=== PATIENT | male | born 1960 | race Caucasian/White ===

== ENCOUNTER → 2017-01-24 | Outpatient (CLI) | payer MEDICARE, OTHER ==
[2017-01-24 12:34] LABS: CHCM 34.9; HCT 46.8 % (39.0-53.0); HDW 2.75; HGB 16.6 gm/dL (13.0-17.5); MCH 32.6 pg (25.0-35.0); MCHC 35.4 g/dL (31.0-37.0); Mean Platelet Volume 7.2; RBC 5.09 m/uL (4.30-5.90); RDW 12.8 % (11.5-15.5); WBC 8.7 k/uL (3.8-10.6)
[2017-01-24 12:48] LABS: ALT 42 U/L (21-72); AST 30 U/L (17-59); Alkaline Phosphatase 81 U/L (38-126); Anion Gap 11 mmol/L; Blood Urea Nitrogen 14 mg/dL (9-20); Calcium 9.8 mg/dL (8.4-10.2); Carbon Dioxide 25 mmol/L (22-30); Chloride 104 mmol/L (98-107); Cholesterol 205 mg/dL (<200); Glucose 103 mg/dL (74-99); HDL Cholesterol 50 mg/dL (40-60); Non-African American GFR(MDRD) >60 (>60 ml/min/1.73 sqM); Potassium 4.3 mmol/L (3.5-5.1); Sodium 140 mmol/L (137-145); Total Protein 7.5 g/dL (6.3-8.2); Triglycerides 136 mg/dL (<150)
[2017-01-24 13:19] LABS: Hepatitis B Surface Ag Index 0.07
[2017-01-24 13:24] LABS: Hepatitis B Core IgM Index 0.04
[2017-01-24 13:36] LABS: Hepatitis C Virus IgG Index 0.01
[2017-01-24 13:40] LABS: Hepatitis C Virus IgG Ab Negative (Negative)
== END ==
LOC: LABWHC1 12:04
PROVIDERS: ATTEND Internal Medicine
DX: Z00.01 Encounter for general adult medical examination with abnormal findings (principal); I11.9 Hypertensive heart disease without heart failure; E78.2 Mixed hyperlipidemia; M54.5 Low back pain; J44.9 Chronic obstructive pulmonary disease, unspecified; Z11.59 Encounter for screening for other viral diseases
CPT/HCPCS: 36415; 80053; 80061; 80074; 85027

== ENCOUNTER → 2018-01-11 | Outpatient (CLI) | payer MEDICARE, OTHER ==
--- NOTE | 2018-01-11 09:44 | XR ---
EXAMINATION TYPE: XR chest 2V DATE OF EXAM: 01/11/2018 COMPARISON: 03/11/2016 INDICATION: Wellness check, asthma history TECHNIQUE: Frontal and lateral views of the chest are obtained. FINDINGS: The heart size is normal. The pulmonary vasculature is normal. The lungs are clear. IMPRESSION: 1. No acute pulmonary process.
[2018-01-11 09:49] LABS: HCT 44.3 % (39.0-53.0); HGB 14.6 gm/dL (13.0-17.5); MCH 30.2 pg (25.0-35.0); MCHC 32.9 g/dL (31.0-37.0); MCV 91.7 fL (80.0-100.0); Mean Platelet Volume 6.5; Platelet Count 365 k/uL (150-450); RBC 4.83 m/uL (4.30-5.90); RDW 12.3 % (11.5-15.5); WBC 8.2 k/uL (3.8-10.6)
[2018-01-11 09:56] LABS: ALT 47 U/L (21-72); AST 27 U/L (17-59); Albumin 4.2 g/dL (3.5-5.0); Alkaline Phosphatase 72 U/L (38-126); Anion Gap 10 mmol/L; Blood Urea Nitrogen 15 mg/dL (9-20); Calcium 10.1 mg/dL (8.4-10.2); Carbon Dioxide 31 mmol/L (22-30); Chloride 103 mmol/L (98-107); Cholesterol 167 mg/dL (<200); Glucose 108 mg/dL (74-99); HDL Cholesterol 54 mg/dL (40-60); LDL Cholesterol,Calculated 84 mg/dL (0-99); Potassium 4.7 mmol/L (3.5-5.1); Sodium 144 mmol/L (137-145); Total Bilirubin 0.5 mg/dL (0.2-1.3); Total Protein 6.6 g/dL (6.3-8.2); Triglycerides 144 mg/dL (<150)
[2018-01-11 10:12] LABS: T4, Free (Free Thyroxine) 1.06 ng/dL (0.78-2.19)
[2018-01-11 10:26] LABS: Prostate Specific Antigen 0.35 ng/mL (0.00-4.00)
== END | disposition home or self-care (01) ==
LOC: LABWHC1 09:06
PROVIDERS: ATTEND Internal Medicine
DX: Z00.00 Encounter for general adult medical examination without abnormal findings (principal); J44.9 Chronic obstructive pulmonary disease, unspecified; K21.0 Gastro-esophageal reflux disease with esophagitis; N40.0 Benign prostatic hyperplasia without lower urinary tract symptoms; E78.2 Mixed hyperlipidemia; I11.9 Hypertensive heart disease without heart failure
CPT/HCPCS: 36415; 71046; 80053; 80061; 82272; 84153; 84439; 84443; 85027

== ENCOUNTER 2018-02-18 11:40 | Day surgery (SDC) | payer MEDICARE, OTHER ==
[2018-02-15 13:09] VITALS: BMI 28.0
[~2018-02-18 11:40] MED LIST: LACTATED RINGERS 1,000 ML IV SCH
[2018-02-18 12:08] VITALS: RESP 18; TEMP 98.1
[2018-02-18] MEDS ORDERED: LACTATED RINGERS 1,000 ML IV ONE (12:14)
[2018-02-18] MEDS ORDERED: PROPOFOL 10 MG/ML 20 ML VIAL IV ONE (12:31)
--- NOTE | 2018-02-18 13:02 | P.PCN ---
Date of Procedure: 02/18/18 Procedure(s) Performed: Procedure: Total colonoscopy. Preoperative diagnosis: Screening for neoplasia, patient has history of polyps. Postoperative diagnosis: Sigmoid diverticulosis with no evidence of acute diverticulitis, strictures, polyps or cancer. Preparation: HalfLytely prep. Sedation: Was provided by anesthesia. Brief clinical history: The patient is a 57-year-old male who is scheduled for this evaluation for screening for neoplasia. He has history of polyps and his last colonoscopy was around 5 years ago. The patient has no abdominal complaints, bleeding or anemia. Procedure: With the patient on his left lateral decubitus position and after informed consent and adequate sedation, the perianal area was inspected and it did not show any fissures or fistulas. There were no masses felt on digital rectal examination. The Olympus CFQ 160L video colonoscope was then inserted in the rectum in the usual fashion and advanced to the cecum. There were few diverticular orifices seen scattered in the sigmoid but there was no evidence of acute diverticulitis or strictures. The mucosa appeared healthy. No polyps or tumors were seen. I retroflexed the endoscope in the rectum before the endoscope was withdrawn. The patient tolerated the procedure. Plan: The patient was reassured. Discussed dietary measures. He will follow up with you as planned and I recommended repeat exam in 5 years.
[2018-02-18 13:17] VITALS: BP 127/67; PULSE 59
== END 2018-02-18 13:48 | disposition home or self-care (01) ==
LOC: ORWHC2ENDO 11:40
DX: Z12.11 Encounter for screening for malignant neoplasm of colon (principal); K57.30 Diverticulosis of large intestine without perforation or abscess without bleeding; Z86.010 Personal history of colon polyps; I10 Essential (primary) hypertension; E78.5 Hyperlipidemia, unspecified; J45.909 Unspecified asthma, uncomplicated; M19.90 Unspecified osteoarthritis, unspecified site; G89.29 Other chronic pain; F17.210 Nicotine dependence, cigarettes, uncomplicated; Z79.891 Long term (current) use of opiate analgesic; Z79.899 Other long term (current) drug therapy; Z88.8 Allergy status to other drugs, medicaments and biological substances

== ENCOUNTER → 2019-03-15 | Outpatient (CLI) | payer MEDICARE, OTHER ==
[2019-03-15 11:18] LABS: HCT 44.1 % (39.0-53.0); HGB 15.1 gm/dL (13.0-17.5); MCH 31.3 pg (25.0-35.0); MCHC 34.2 g/dL (31.0-37.0); MCV 91.5 fL (80.0-100.0); Mean Platelet Volume 6.3; Platelet Count 349 k/uL (150-450); RBC 4.82 m/uL (4.30-5.90); RDW 12.7 % (11.5-15.5); WBC 7.1 k/uL (3.8-10.6)
[2019-03-15 16:19] LABS: Albumin 4.3 g/dL (3.80-4.90); Albumin/Globulin Ratio 2.69 (1.60-3.17); Anion Gap 6.8 mmol/L (4.00-12.00); Calcium 9.3 mg/dL (8.7-10.3); Carbon Dioxide 28.2 mmol/L (21.6-31.8); Globulin 1.6 g/dL (1.6-3.3); LDL Cholesterol,Calculated 139.4 mg/dL (0.0-131.0); Total Bilirubin 0.3 mg/dL (0.2-1.2); Total Protein 5.9 g/dL (6.2-8.2); VLDL Calculation 21.6 mg/dL (5.00-40.00)
--- NOTE | 2019-03-15 16:22 | XR ---
EXAMINATION TYPE: XR chest 2V DATE OF EXAM: 03/15/2019 COMPARISON: 01/11/2018 HISTORY: 58-year-old male COPD TECHNIQUE: Frontal and lateral views FINDINGS: Heart normal size. Aorta and pulmonary vasculature within normal limits. Hyperinflation with flatteni ng of hemidiaphragms. Right apical nodularity seems to have been present back in 2018. IMPRESSION: COPD. Right apical nodularity for which a contrast enhanced CT chest is recommended, especially, give n the patient's increased risk for development of lung cancer.
[2019-03-15 16:28] LABS: T4, Free (Free Thyroxine) 1.2 ng/dL (0.80-1.80)
== END | disposition home or self-care (01) ==
LOC: LABWHC1 10:43
PROVIDERS: ATTEND Internal Medicine
DX: J44.9 Chronic obstructive pulmonary disease, unspecified (principal); I11.9 Hypertensive heart disease without heart failure; E78.2 Mixed hyperlipidemia; N62 Hypertrophy of breast
CPT/HCPCS: 36415; 71046; 80053; 80061; 84146; 84403; 84439; 84443; 85027

== ENCOUNTER → 2019-03-21 | Outpatient (CLI) | payer MEDICARE, OTHER ==
--- NOTE | 2019-03-21 09:48 | CT ---
EXAMINATION TYPE: CT chest w con DATE OF EXAM: 03/21/2019 COMPARISON: Prior chest x-ray March 15, 2019 HISTORY: Chest mass, lump. Recent abnormal chest x-ray CT DLP: 543 mGycm. Automated Exposure Control for Dose Reduction was Utilized. TECHNIQUE: CT scan of the thorax is performed following with IV Contrast, patient injected with 100 ml mL of Isovue 300. FINDINGS: LUNGS: There is background moderate underlying emphysematous change identified most prominent in the lung apices. Corresponding to area of concern right lung apex there is osteophyte or bony projection inferior aspect of the right posterior second junction with right T2 transverse process. There is no suspicious intraparenchymal nodules or masses. No suspicious consolidation or infiltrate. No pleural effusion or pneumothorax. Tracheobronchial tree is patent. MEDIASTINUM: There are no greater than 1 cm hilar or mediastinal lymph nodes. No cardiomegaly or pe ricardial effusion is seen. OTHER: Right greater than left bilateral subareolar gynecomastia is appreciated. IMPRESSION: No suspicious nodules or adenopathy. Moderate emphysematous changes without acute pulmona ry process.
== END | disposition home or self-care (01) ==
LOC: RADCTMAIN 08:58
PROVIDERS: ATTEND Internal Medicine
DX: J43.9 Emphysema, unspecified (principal)
CPT/HCPCS: 71260; Q9967

== ENCOUNTER → 2023-06-12 | Outpatient (CLI) | payer MEDICARE, OTHER ==
--- NOTE | 2023-06-15 08:33 | PE ---
EXAMINATION TYPE: PET CT fusion skull to thigh DATE OF EXAM: 06/12/2023 COMPARISON: CT chest 03/21/2019 Prior PET/CT: None HISTORY: Solitary pulmonary nodule TECHNIQUE: Following the intravenous administration of 10 mCi of F-18 FDG, whole body images are per formed from the skull base to the midthigh. Images are reviewed on the computer in the coronal, axia l, and sagittal planes. Reconstructed rotating images are created on independent workstation and rev iewed on the computer. A localization and attenuation correction CT is performed in conjunction wit h the PET scan. DLP: 472.07 mGycm SCAN: Initial Blood glucose: 103 mg/dL Average Mediastinum SUV: 1.55 Average Liver SUV: 2.47 FINDINGS: NECK: Note is made of some intermediate signal within the space between the C6-C7 spinous process co uld be some mild injury or strain. This is an SUV value 1.82. Image 49. THORAX: There is some intermediate signal and area of slight increased density along the lateral left upper lung field, image 82. This has an SUV value 1.36 which is nonspecific. This may be small and h ypermetabolic neoplasm may be more difficult to exclude. Infectious etiologies are within the differe ntial. Monitoring was CT chest is recommended. ABDOMEN: No abnormal uptake PELVIS: No abnormal uptake OSSEOUS STRUCTURES: There is mild uptake at the anterior superior iliac spine on the right, which may be some strain. Sphenoid 2.47. LOCALIZATION CT: Noncontributory COMPARISON: The increased density in the lateral left apex is an interval finding from 03/21/2019 millicent rison IMPRESSION: 1. Intermediate signal within the small area of increased density lateral left apex. Finding is nonsp ecific. Infectious etiology and early neoplasm could be considered. Monitoring with follow-up chest C T with contrast in 3 months is recommended.
== END | disposition home or self-care (01) ==
LOC: RADPETMAIN 08:28
PROVIDERS: ATTEND Family Medicine
DX: R91.1 Solitary pulmonary nodule (principal); R91.8 Other nonspecific abnormal finding of lung field
CPT/HCPCS: 78815; A9552

== ENCOUNTER → 2023-09-24 | Outpatient (CLI) | payer MEDICARE ==
--- NOTE | 2023-09-25 08:08 | CT ---
EXAMINATION TYPE: CT chest w con DATE OF EXAM: 09/24/2023 COMPARISON: 03/21/2019 HISTORY: nodules, hx of COPD CT DLP: 546 mGycm, Automated exposure control for dose reduction was used. CONTRAST: Performed injected with 100 mL of Isovue 300. TECHNIQUE: Axial images were obtained at 5 mm thick sections. Reconstructed images are reviewed on [employer] computer in the coronal plane. FINDINGS: Portion of the thyroid visualized is normal. There is a 2 cm calcification in the posterior medial right apex as previously. Some thick linear density along the lateral left lung margin measuring 2.2 x 0.6 cm. Series 4 image 1 9. This is new from comparison of 03/21/2019. This area is slightly hyperintense on the PET/CT of 2022. No enlarged mediastinal or hilar adenopathy is evident. The ascending aorta diameter at the level o f the main pulmonary artery is 3.1 cm. The main pulmonary artery diameter at the bifurcation is 2.[address] sections are obtained through the upper abdomen. Abdomen is essentially unremarkable. IMPRESSION: 1. Increasing size density left apex. Repeat PET/CT recommended for suspected neoplasm.
== END | disposition home or self-care (01) ==
LOC: RADCTMAIN 16:32
PROVIDERS: ATTEND Family Medicine
DX: J43.9 Emphysema, unspecified (principal); J98.4 Other disorders of lung; R91.1 Solitary pulmonary nodule
CPT/HCPCS: 71260; Q9967

== ENCOUNTER → 2023-11-26 | Outpatient (CLI) | payer MEDICARE, OTHER ==
--- NOTE | 2023-11-28 11:51 | PE ---
EXAMINATION TYPE: PET CT fusion skull to thigh DATE OF EXAM: 11/26/2023 CLINICAL INDICATION:Male, 63 years old with history of R91.1 LUNG NODULE; TECHNIQUE: Following the intravenous administration of 12.57 mCi of F-18 FDG, whole body images are performed from the skull base to the midthigh. Images are reviewed on the computer in the coronal, axial, and sagittal planes. Reconstructed rotating images are created on independent workstation and reviewed on the computer. A non-contrast CT is performed in conjunction with the PET scan. Glucose level 90 mg/dL CT DLP: 365 mGycm, Automated exposure control for dose reduction was used. COMPARISON: CT 09/24/2023, PET/CT 06/04/2023, FINDINGS: Mediastinal SUV mean is 1.6. Hepatic parenchyma SUV mean is 2.4. SKULL BASE AND NECK: * No suspicious radiotracer activity. * Uptake in the supraspinous ligament and the low posterior neck suggestive of muscle strain. CHEST, MEDIASTINUM, AND HILAR REGION: * Increased density within the left upper lung lateral aspect is thought to represent atelectasis an d/or scarring. Morphology has significantly changed compared to 06/12/2023. Max SUV 1.5. Previously 1. 7. * No suspicious radiotracer activity. * Left upper thorax muscle strain involving multiple muscles in the low neck including the scalene m uscles and intercostal muscles. ABDOMEN AND PELVIS: No suspicious radiotracer activity. MUSCULOSKELETAL STRUCTURES: No suspicious radiotracer activity. OTHER CT: Atherosclerosis of the arterial vasculature including the carotid arteries. Mild bilateral gynecomastia changes. Small hiatal hernia. Small umbilical hernia. Scattered colonic diverticula. Pro statomegaly IMPRESSION: Finding the left upper lung lateral aspect has a streaky curvilinear morphology. Findings suggest ate lectasis and/or scarring. Surveillance with CT chest is recommended.
== END | disposition home or self-care (01) ==
LOC: RADPETMAIN 07:50
PROVIDERS: ATTEND Family Medicine
DX: R91.1 Solitary pulmonary nodule (principal)
CPT/HCPCS: 78815; A9552

== ENCOUNTER 2024-07-14 07:45 | Day surgery (SDC) | payer MEDICARE, OTHER ==
[2024-07-14 08:09] VITALS: TEMP 97.2
[2024-07-14] MEDS: LACTATED RINGERS 1,000 ML IV SCH (08:15)
[2024-07-14] MEDS: IV FLUID CONTINUATION 1,000 ML IV ONE (08:15)
[2024-07-14] MEDS ORDERED: LIDOCAINE 1% INJ 10MG/ML (20 ML MDV) ONE (09:04)
[2024-07-14] MEDS ORDERED: PROPOFOL 10 MG/ML 20 ML VIAL IV ONE (09:04)
--- NOTE | 2024-07-14 09:06 | P.GSHP ---
History of Present Illness H&P Date: 07/14/24 Chief Complaint: Screening colonoscopy Is a 63-year-old male who presents today for screening colonoscopy. Patient denies any significant GI complaints. The patient states he had polyps removed approximately 30 years ago. Past Medical History Past Medical History: Asthma, COPD, Hyperlipidemia, Hypertension, Osteoarthritis (OA) Additional Past Medical History / Comment(s): DDD, BONE SPURS, HX OF DIVERTICUL OSIS., HX OF COLON POLYPS., History of Any Multi-Drug Resistant Organisms: None Reported Additional Past Surgical History / Comment(s): testicles lowered as a child, glass removed from foot as a child, colonoscopy, sinus surgery Past Anesthesia/Blood Transfusion Reactions: No Reported Reaction Smoking Status: Current every day smoker - Past Family History Father Family Medical History: Cancer Additional Family Medical History / Comment(s): KIDNEY CANCER WITH METS Mother Family Medical History: No Reported History Brother(s) Family Medical History: Cancer Additional Family Medical History / Comment(s): SKIN CANCER Sister(s) Family Medical History: Cancer Additional Family Medical History / Comment(s): SKIN CANCER Medications and Allergies Home Medications Medication Instructions Recorded Confirmed Type Albuterol Inhaler [Ventolin Hfa 2 puff INHALATION QID PRN 07/13/24 07/14/24 History Inhaler] Cholecalciferol (Vitamin D3) 1,250 mcg PO Q7D 07/13/24 07/14/24 History [Vitamin D3 (1250 Mcg = 50,000 Iu)] Escitalopram [Lexapro] 10 mg PO QAM 07/13/24 07/14/24 History Fluticasone/Umeclidin/Vilanter 1 puff INHALATION HS 07/13/24 07/14/24 History [Trelegy Ellipta 200-62.5-25] Losartan/Hydrochlorothiazide 1 tab PO QAM 07/13/24 07/14/24 History [Losartan-Hctz 100-12.5 mg Tab] QUEtiapine FUMARATE 50 mg PO HS 07/13/24 07/14/24 History amLODIPine BESYLATE 10 mg PO QAM 07/13/24 07/14/24 History Allergies Allergy/AdvReac Type Severity Reaction Status Date / Time cyclobenzaprine HCl AdvReac Confusion Verified 07/14/24 08:04 [From Flexeril] prednisone AdvReac Unknown Verified 07/14/24 08:04 Surgical - Exam Vital Signs Temp Pulse Resp BP Pulse Ox 97.2 F L 66 18 125/72 95 07/14/24 08:04 07/14/24 08:04 07/14/24 08:04 07/14/24 08:04 07/14/24 08:04 - General well developed, well nourished, no distress - Eyes PERRL - ENT normal pinna - Neck no masses - Respiratory normal expansion - Cardiovascular Rhythm: regular - Abdomen Abdomen: soft, non tender Assessment and Plan Assessment: Will perform screening colonoscopy.
--- NOTE | 2024-07-14 09:19 | P.OP ---
Date of Procedure: 07/14/24 Preoperative Diagnosis: Screening colonoscopy Postoperative Diagnosis: Diverticulosis Rectal polyp Procedure(s) Performed: Colonoscopy Anesthesia: MAC Surgeon: Nelson Gunter Pathology: other (Rectal polyp) Condition: stable Disposition: PACU Description of Procedure: The patient is placed on the endoscopy table in the lateral position. He received IV sedation. Digital rectal exam was performed. This revealed no abnormalities. The flexible colonoscope was then placed patient anus and passed throughout the entire colon. The ileocecal valve was visualized. The cecum, ascending and transverse colon appeared normal. In the descending sigmoid colon there was moderate diverticulosis. Scope was brought to the rectum and a small sessile polyp was removed with a cold forcep. Scope withdrawn from the patient.
[2024-07-14 09:38] VITALS: BP 130/71; PULSE 65; RESP 16
== END 2024-07-14 09:53 | disposition home or self-care (01) ==
LOC: ORWHC2ENDO 07:45
PROVIDERS: ATTEND Surgery
DX: Z12.11 Encounter for screening for malignant neoplasm of colon (principal); K62.1 Rectal polyp; K57.30 Diverticulosis of large intestine without perforation or abscess without bleeding; E78.5 Hyperlipidemia, unspecified; J44.89 Other specified chronic obstructive pulmonary disease; I10 Essential (primary) hypertension; M19.90 Unspecified osteoarthritis, unspecified site; F17.200 Nicotine dependence, unspecified, uncomplicated; Z88.8 Allergy status to other drugs, medicaments and biological substances; Z79.899 Other long term (current) drug therapy
CPT/HCPCS: 45380; 88305